=== PATIENT | female | born 2000 | race Two or more races ===

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

== ENCOUNTER 2021-03-13 12:45 | Emergency (ER) | payer OTHER ==
[~2021-03-13] VITALS: Ht 165.1 cm; Wt 70.0 kg
[2021-03-13 13:11] VITALS: BP 148/99
--- NOTE | 2021-03-13 13:14 | PHYS DOC ---
Past History Past Medical History: No Pertinent History Past Surgical History: No Surgical History Smoking: Non-smoker Alcohol Use: None Drug Use: None Adult General Chief Complaint Chief Complaint: ABDOMINAL PAIN HPI HPI Patient is a 20-year-old female presenting for lower abdominal cramping. 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 Was recently notified that she was which was unintentional, her first ever and presented to local [facility] 6 days prior for evaluation for . Decision was made with provider at that time to initiate misoprostol and methotrexate for chemical . She has been taking these medications in addition to prescribed NSAIDs and antiemetics, states she still is experiencing lower abdominal cramping. Bleeding has been controlled, states she has been changing pads at least 3 times daily since initiating treatment 6 days ago but reports bleeding overall has improved. No fever, no lightheadedness, no chest pain or shortness of breath. She has not contacted her primary care physician to discuss follow-up, she has no TENDERIZER TENDER physician. 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 See HPI for pertinent positives and negative responses, other vasquez all other systems are negative, non-pertinent or non-contributory Physical Exam Physical Exam Constitutional: Well developed, well nourished, no acute distress, non-toxic appearance. HENT: Normocephalic, atraumatic, bilateral external ears normal, oropharynx moist, no oral exudates, nose normal. Eyes: PERRLA, EOMI, conjunctiva normal, no discharge. Neck: Normal range of motion, no tenderness, supple, no stridor. Cardiovascular: Heart rate regular, sinus rhythm, no murmurs rubs or gallops Lungs & Thorax: Bilateral breath sounds clear to auscultation Abdomen: Bowel sounds normal, soft, no tenderness, no masses, no pulsatile masses. Nonsurgical abdomen, no peritoneal signs Skin: Warm, dry, no erythema, no rash. Back: No tenderness, no CVA tenderness. Extremities: No tenderness, no cyanosis, no clubbing, ROM intact, no edema. Neurologic: Alert and oriented X 3, grossly normal motor & sensory function, no focal deficits noted. Psychologic: Affect normal, judgement normal, mood normal. Current Patient Data Vital Signs Vital Signs Date Time Temp Pulse Resp B/P (MAP) Pulse Ox O2 Delivery O2 Flow Rate FiO2 03/13/21 13:11 98.2 66 16 148/99 (115) 99 Room Air Vital Signs Date Time Temp Pulse Resp B/P (MAP) Pulse Ox O2 Delivery O2 Flow Rate FiO2 03/13/21 13:11 98.2 66 16 148/99 (115) 99 Room Air EKG EKG [] Radiology/Procedures Radiology/Procedures [] Heart Score C/O Chest Pain: No HEART Score for Chest Pain: HEART Score for Chest Pain Response (Comments) Value History Slighlty/Non-Suspicious 0 Age < 45 0 Risk Factors No Risk Factors 0 Total 0 Risk Factors: Risk Factors: DM, Current or recent (<one month) smoker, HTN, HLP, family history of CAD, obesity. Risk Scores: Risk Factors: DM, Current or recent (<one month) smoker, HTN, HLP, family history of CAD, obesity. Course & Med Decision Making Course & Med Decision Making Vital signs stable. HPI and physical examination nonconcerning for emergent or surgical issues Discussed most likely diagnosis of side effects of recent chemical without any concerning signs or symptoms. I discussed potential utility of laboratory analysis and imaging; however, after reviewing patient case at length joint decision was made to defer. Patient only taken ibuprofen for pain, has not utilized Tylenol yet. Advised continued supportive care practices such as heating pad She has not contacted her primary care physician regarding recent chemical that was elective in nature and performed at [facility]. I advised her that her primary care physician should be notified if this recent change in health activity for close follow-up Patient does not have TENDERIZER TENDER. Her recent was not planned. I discussed and offered pelvic exam to ensure there is no retained products of conception but patient deferred stating that her bleeding has actually improved its the abdominal cramping that worries her more I advised her ultimately to continue supportive care practices with close primary care physician follow-up as outpatient TENDERIZER TENDER evaluation might be indicated Strict return precautions were discussed with good understanding by patient and significant other present, all questions and concerns addressed prior to ER departure Heri Disclaimer Dragon Disclaimer This electronic medical record was generated, in whole or in part, using a voice recognition dictation system. Departure Departure: Impression: Primary Impression: in first trimester Disposition: HOME / SELF CARE / HOMELESS Condition: STABLE Referrals: MADISON CARBAJAL (PCP) Patient Instructions: , Prostaglandin-Induced Additional Instructions: As discussed prior to ER departure, you are likely experiencing negative side effects from recent chemical . You have been taking ibuprofen as scheduled with meals which is good, as discussed you can incorporate Tylenol into your pain medication regiment in addition to application of warm heating pads. Your vital signs and physical exam were unremarkable for emergent or surgical findings. I discussed indication for laboratory analysis and further diagnostic testing in ER setting but joint decision was made to defer given clinical scenario. As such, it is pertinent that you contact your primary care physician at [facility] immediately after ER departure to review visit today and discuss next steps of care that should involve close follow-up early next week in likely outpatient TENDERIZER TENDER consultation if symptoms persist. Any concerning signs or symptoms present prior to outpatient follow-up please do not hesitate to come back for repeat evaluation. It was a pleasure to take care of you and I wish you the best going forward LARRY FERNANDO DO March 13, 2021 13:14
== END 2021-03-13 13:22 | disposition home or self-care (01) ==
LOC: ER 12:45
DX: O03.9 Complete or unspecified spontaneous abortion without complication (principal)
CPT/HCPCS: 99282-25

== ENCOUNTER → 2021-09-02 | Outpatient (CLI) | payer OTHER ==
--- NOTE | 2021-09-02 18:05 | RAD ---
Study: 1. XR EXAM OF ANKLE_LEFT 3V 2. XR FOOT_LEFT 3 VIEWS Indication: Left foot and ankle pain. Comparison: Left ankle radiographs 12/16/2020 Findings: Left ankle: The malleoli are intact. Symmetric ankle mortise. Unremarkable talar dome. Left foot: No acute fracture. Chronic mild cortical thickening of the third metatarsal shaft. No periostitis. Ma intained joint spaces. Os peroneum. Cornuate configuration of the navicular. Impression: Left ankle and left foot: No acute fracture or traumatic malalignment. Chronic cortical thickening of the third metatarsal shaf t could be related to remote injury. No radiographic evidence for active stress injury. Electronically signed by: HERIBERTO GOYAL MD (09/02/2021 6:03 PM) [facility]
== END ==
LOC: RAD 17:33
PROVIDERS: ATTEND Nurse Practitioner Family
DX: M89.8X7 Other specified disorders of bone, ankle and foot (principal); M25.572 Pain in left ankle and joints of left foot
CPT/HCPCS: 73610; 73630